=== PATIENT | male | born 1935 | race Caucasian/White ===

== ENCOUNTER 2016-06-25 01:59 | Emergency (ER) | payer OTHER ==
[2016-06-25 02:34] VITALS: BP 125/80; PULSE 60; TEMP 98.7; BMI 28.9
--- NOTE | 2016-06-25 06:35 | PDOC ---
History of Present Illness - General Chief Complaint: Cold Symptoms Stated Complaint: THROAT PROBLEM Time Seen by Provider: 06/25/16 05:11 History Source: Patient Exam Limitations: No Limitations - History of Present Illness Initial Comments: 06/25/16 06:26 Patient is a 80-year-old male with history of hypothyroid, varicosities, Parkinson's, impaired balance, complaining of a lot of phlegm 2 months and feeling like he can't swallow his phlegm. He denies abdominal pain, reflux. He was seen by ENT 1 week ago and there were no abnormal findings. He is scheduled to go to GI on June 29. Otherwise no other complaints of cough, fever, chills, chest pain, nausea, vomiting, constipation, diarrhea. PMD: Dr. Rodriguez PMHX: as above PSOCHx: neg etoh, drug, cig FamHx: Noncontributory ALL: NKDA GENERAL/CONSTITUTIONAL: [No fever or chills. No weakness. No weight change.] HEAD, EYES, EARS, NOSE AND THROAT: [No change in vision. No ear pain or discharge. No sore throat.] CARDIOVASCULAR: [No chest pain or shortness of breath.] RESPIRATORY: [No cough, wheezing, or hemoptysis.] GASTROINTESTINAL: [No nausea, vomiting, diarrhea or constipation. No rectal bleeding.] GENITOURINARY: [No dysuria, frequency, or change in urination.] MUSCULOSKELETAL: [No joint or muscle swelling or pain. No neck or back pain.] SKIN AND BREASTS: [No rash or easy bruising.] NEUROLOGIC: [No headache, vertigo, loss of consciousness, or loss of sensation, impaired balance.] PSYCHIATRIC: [No depression or anxiety.] ENDOCRINE: [No increased thirst. No abnormal weight change.] HEMATOLOGIC/LYMPHATIC: [No anemia, easy bleeding, or history of blood clots.] ALLERGIC/IMMUNOLOGIC: [No hives or skin allergy. No latex allergy.] GENERAL: [The patient is awake, alert, and fully oriented, in no acute distress. ] HEAD: [Normal with no signs of trauma.] EYES: [Pupils equal, round and reactive to light, extraocular movements intact, sclera anicteric, conjunctiva clear.] ENT: [Ears normal, nares patent, oropharynx clear without exudates. Moist mucous membranes.] NECK: [Normal range of motion, supple without lymphadenopathy, JVD, or masses.] LUNGS: [Breath sounds equal, clear to auscultation bilaterally. No wheezes, and no crackles.] HEART: [Regular rate and rhythm, normal S1 and S2 without murmur, rub.] ABDOMEN: [Soft, nontender, normoactive bowel sounds. No guarding, no rebound. No masses.] EXTREMITIES: [Normal range of motion, no edema. No clubbing or cyanosis. No cords, erythema, or tenderness.] NEUROLOGICAL: [Cranial nerves II through XII grossly intact. Normal speech, normal gait.] PSYCH: [Normal mood, normal affect.] SKIN: [Warm, Dry, normal turgor, no rashes or lesions noted.] Past History - Past Medical History Allergies/Adverse Reactions: Allergies Allergy/AdvReac Type Severity Reaction Status Date / Time No Known Allergies Allergy Verified 06/25/16 02:06 Home Medications: Ambulatory Orders Esomeprazole Mag Trihydrate [Nexium] 40 mg PO DAILY 11/10/12 Levothyroxine [Synthroid -] 50 mcg PO DAILY 11/10/12 Atorvastatin Ca [Lipitor] 10 mg PO HS 09/29/15 Bisacodyl [Dulcolax] 5 mg PO PRN PRN 09/29/15 Multivitamins [Multivit ([facility] Formul[facility])] 1 tab PO DAILY 09/29/15 Simvastatin [Zocor -] 20 mg PO HS 09/29/15 Aspirin/Dipyridamole [Aggrenox -] 1 combo PO DAILY #0 09/30/15 Carbidopa/Levodopa *Cr* 25/100 [Sinemet *Cr* 25/100 -] 1 combo PO BID 06/25/16 Clopidogrel Bisulfate [Plavix -] 75 mg PO DAILY 06/25/16 Diclofenac Sodium [Voltaren] 0 gm TP Q12H PRN 06/25/16 Anemia: No Asthma: No Cancer: No Cardiac Disorders: No CVA: No COPD: No CHF: No Dementia: No Diabetes: No GI Disorders: Yes (GERD, GASTRITIS) Disorders: Yes (BPH?) HTN: No Hypercholesterolemia: Yes Liver Disease: Yes (FATTY LIVER) Seizures: No Thyroid Disease: Yes (HYPO) - Surgical History Abdominal Surgery: No Appendectomy: No Cardiac Surgery: No Cholecystectomy: No Lung Surgery: No Neurologic Surgery: No Orthopedic Surgery: No - Psycho/Social/Smoking Cessation Hx Anxiety: No Suicidal Ideation: No Smoking Status: No Smoking History: Never smoked Number of Cigarettes Smoked Daily: 0 Hx Alcohol Use: Yes (OCC) Drug/Substance Use Hx: No Substance Use Type: None Hx Substance Use Treatment: No Respiratory Specific PMHX - Complaint Specific PMHX Angina: No *Physical Exam - Vital Signs Last Vital Signs Temp Pulse Resp BP Pulse Ox 98.7 F 60 18 125/80 97 06/25/16 02:04 06/25/16 02:04 06/25/16 02:04 06/25/16 02:04 06/25/16 02:04 Medical Decision Making - Medical Decision Making 06/25/16 06:41 Patient is a 80-year-old male with history of hypothyroid, varicosities, Parkinson's, impaired balance, complaining of a lot of phlegm 2 months and feeling like he can't swallow his phlegm. Likely that patient is having some reflux and since he has an appointment with GI in 2 days will discharge him with instructions to follow-up. I discussed the physical exam findings, ancillary test results and final diagnoses with the patient. I answered all of the patient's questions. The patient was satisfied with the care received and felt comfortable with the discharge plan and treatment plan. The Patient agrees to follow up with the primary care physician within 24-72 hours. *DC/Admit/Observation/Transfer Diagnosis at time of Disposition: Reflux esophagitis - Discharge Dispostion Disposition: HOME Condition at time of disposition: Stable - Referrals Referrals: Henny Graham MD [Primary Care Provider] - - Patient Instructions Printed Discharge Instructions: DI for Gastroesophageal Reflux Disease (GERD) Additional Instructions: Your Discharge Instructions: You must call primary care physician within 24 hours to arrange follow-up. Return to the Emergency Department with any new, persistent or worsening symptoms, for fever, chills, SOB, dizziness or any other concerning changes that may occur.
== END 2016-06-25 06:58 | disposition home or self-care (01) ==
LOC: JER 01:59
DX: K21.0 Gastro-esophageal reflux disease with esophagitis (principal); E03.9 Hypothyroidism, unspecified; G20 Parkinson's disease; R26.81 Unsteadiness on feet; I86.8 Varicose veins of other specified sites
CPT/HCPCS: 71020-TC; 99282-25

== ENCOUNTER 2016-10-03 00:02 | Emergency (ER) | payer OTHER ==
--- NOTE | 2016-10-03 00:42 | PDOC ---
History of Present Illness - History of Present Illness Initial Comments: 10/03/16 00:53 Patient is a 81 year old male with significant medical hx of Type II DM, Parkinson's, GERD, HLD, and hypothyroidism who is presenting to the ED with four months of chest congestion and productive cough. The patient states that he 's been symptomatic for the past few months after receiving flu and pneumonia vaccines. The patient was seen at [address] [place] [address], where he was diagnosed with cough and rhinosinusitis and discharged on mucinex and singulair. The patient came to the ED tonight because his symptoms are persisting even with medication. Denies fever, chills, chest pain, lightheadedness, nausea, vomiting , diarrhea, or urinary complaints. <Zakiya Casey - Last Filed: 10/03/16 00:53> <Evelyn Harris - Last Filed: 10/03/16 02:12> - General Chief Complaint: Shortness of Breath Stated Complaint: DIFFICULTY BREATHING Time Seen by Provider: 10/03/16 00:36 Past History <Zakiya Casey - Last Filed: 10/03/16 00:53> - Past Medical History Anemia: No Asthma: No Cancer: No Cardiac Disorders: No CVA: No COPD: No CHF: No Dementia: No Diabetes: No GI Disorders: Yes (GERD, GASTRITIS) Disorders: Yes (BPH?) HTN: No Hypercholesterolemia: Yes Liver Disease: Yes (FATTY LIVER) Seizures: No Thyroid Disease: Yes (HYPO) - Surgical History Abdominal Surgery: No Appendectomy: No Cardiac Surgery: No Cholecystectomy: No Lung Surgery: No Neurologic Surgery: No Orthopedic Surgery: No - Psycho/Social/Smoking Cessation Hx Anxiety: No Suicidal Ideation: No Smoking Status: No Smoking History: Never smoked Number of Cigarettes Smoked Daily: 0 Hx Alcohol Use: Yes (OCC) Drug/Substance Use Hx: No Substance Use Type: None Hx Substance Use Treatment: No <Evelyn Harris - Last Filed: 10/03/16 02:12> - Past Medical History Allergies/Adverse Reactions: Allergies Allergy/AdvReac Type Severity Reaction Status Date / Time No Known Allergies Allergy Verified 10/03/16 00:43 Home Medications: Ambulatory Orders Esomeprazole Mag Trihydrate [Nexium] 40 mg PO DAILY 11/10/12 Levothyroxine [Synthroid -] 50 mcg PO DAILY 11/10/12 Atorvastatin Ca [Lipitor] 10 mg PO HS 09/29/15 Bisacodyl [Dulcolax] 5 mg PO PRN PRN 09/29/15 Multivitamins [Multivit ([facility] Formul[facility])] 1 tab PO DAILY 09/29/15 Simvastatin [Zocor -] 20 mg PO HS 09/29/15 Aspirin/Dipyridamole [Aggrenox -] 1 combo PO DAILY #0 09/30/15 Carbidopa/Levodopa *Cr* 25/100 [Sinemet *Cr* 25/100 -] 1 combo PO BID 06/25/16 Clopidogrel Bisulfate [Plavix -] 75 mg PO DAILY 06/25/16 Diclofenac Sodium [Voltaren] 0 gm TP Q12H PRN 06/25/16 Albuterol Sulfate Inhaler - [Ventolin Hfa Inhaler -] 1 - 2 inh PO Q4H PRN #1 inhaler 10/03/16 Methylprednisolone [Medrol Dose Garrick] 4 mg PO ASDIR #21 tablet 10/03/16 Respiratory Specific PMHX - Complaint Specific PMHX Angina: No <Evelyn Harris - Last Filed: 10/03/16 02:12> Review of Systems - Review of Systems Comments:: 10/03/16 01:00 CONSTITUTIONAL: Absent: fever, chills, diaphoresis, generalized weakness, malaise, loss of appetite HEENT: Absent: rhinorrhea, nasal congestion, throat pain, throat swelling, difficulty swallowing, mouth swelling, ear pain, eye pain, visual changes CARDIOVASCULAR: Absent: chest pain, syncope, palpitations, irregular heart rate, lightheadedness , peripheral edema RESPIRATORY: Present: productive cough, chest congestion Absent: shortness of breath, dyspnea with exertion, orthopnea, wheezing, stridor , hemoptysis GASTROINTESTINAL: Absent: abdominal pain, abdominal distension, nausea, vomiting, diarrhea, constipation, melena, hematochezia GENITOURINARY: Absent: dysuria, frequency, urgency, hesitancy, hematuria, flank pain, genital pain MUSCULOSKELETAL: Absent: myalgia, arthralgia, joint swelling SKIN: Absent: rash, itching, pallor HEMATOLOGIC/IMMUNOLOGIC: Absent: easy bleeding, easy bruising, lymphadenopathy, frequent infections ENDOCRINE: Absent: unexplained weight gain, unexplained weight loss, heat intolerance, cold intolerance NEUROLOGIC: Absent: headache, focal weakness or paresthesia, dizziness, unsteady gait, seizure, mental status changes, bladder or bowel incontinence. PSYCHIATRIC: Absent: anxiety, depression, suicidal or homicidal ideation, hallucinations <Zakiya Casey - Last Filed: 10/03/16 00:53> *Physical Exam - Vital Signs Last Vital Signs Temp Pulse Resp BP Pulse Ox 97.8 F 89 20 134/70 97 10/03/16 00:37 10/03/16 00:37 10/03/16 00:37 10/03/16 00:37 10/03/16 00:37 - Physical Exam Comments: 10/03/16 01:01 GENERAL: Well developed, well nourished. Awake and alert. No acute distress. HEENT: Normocephalic, atraumatic. PERRLA, EOMI. No conjunctival pallor. Sclera are non- icteric. Moist mucous membranes. Oropharynx is clear. NECK: Supple. Full ROM. No JVD. Carotid pulses 2+ and symmetric, without bruits. No thyromegaly. No lymphadenopathy. CARDIOVASCULAR: Regular rate and rhythm. No murmurs, rubs, or gallops. Distal pulses are 2+ and symmetric. PULMONARY: Scattered wheezing. Cough. No evidence of respiratory distress. No rales or rhonchi. ABDOMINAL: Soft. Non-tender. Non-distended. No rebound or guarding. No organomegaly. Normoactive bowel sounds. MUSCULOSKELETAL: Normal range of motion at all joints. No bony deformities or tenderness. No CVA tenderness. EXTREMITIES: No cyanosis. No clubbing. No edema. No calf tenderness. SKIN: Warm and dry. Normal capillary refill. No rashes. No jaundice. NEUROLOGICAL: Alert, awake, appropriate. Cranial nerves 2-12 intact. Normal speech. Toes are down-going bilaterally. Gait is normal without ataxia. PSYCHIATRIC: Cooperative. Good eye contact. Appropriate mood and affect. <Zakiya Casey - Last Filed: 10/03/16 00:53> Medical Decision Making - Medical Decision Making 10/03/16 02:08 81-year-old male came in by ambulance accompanied by his for complaint of congestion, nocturnal coughing, difficulty breathing. He has a history of Parkinson's and was seen by his primary doctor today. Today, his primary doctor gave him 2 new prescriptions which were mucinex and Singulair which they picked up at the [facility]. On exam, he had some faint scattered wheezing, and a significant amount of phlegm . He is not hypoxic . He was given an albuterol treatment and his symptoms resolved. CXR did not show any significant effusions, no pneumothorax, no pneumonia I spoke to the patient and his and told them they should follow-up with his neurologist because his symptoms may be related to the progression of his Parkinson's and his inability to clear his own secretions well and take deep breaths <Evelyn Harris - Last Filed: 10/03/16 02:12> *DC/Admit/Observation/Transfer - Attestations Scribe Attestion: 10/03/16 01:06 Documentation prepared by Zakiya Casey, acting as anesthesiology medical doctor for Evelyn Harris MD. <Zakiya Casey - Last Filed: 10/03/16 00:53> <Evelyn Harris - Last Filed: 10/03/16 02:12> Diagnosis at time of Disposition: Phlegm in throat, Parkinson disease, Wheezing - Discharge Dispostion Disposition: HOME Condition at time of disposition: Stable - Prescriptions Prescriptions: Methylprednisolone [Medrol Dose Garrick] 4 mg PO ASDIR #21 tablet Albuterol Sulfate Inhaler - [Ventolin Hfa Inhaler -] 1 - 2 inh PO Q4H PRN #1 inhaler PRN Reason: Wheezing - Referrals Referrals: Henny Graham MD [Primary Care Provider] - Matty Paiz MD [Staff Physician] - - Patient Instructions Printed Discharge Instructions: DI for Parkinson's Disease Additional Instructions: please cloth picker your medications at the [facility] follow up with your neurologist
[2016-10-03 00:43] VITALS: BP 134/70; PULSE 89; TEMP 97.8; BMI 28.1
[2016-10-03] MEDS ORDERED: VALSARTAN 160 MG TABLET (UD) PO ONE (00:45)
[2016-10-03] MEDS ORDERED: ALBUTEROL SO4 2.5/IPRATROPIUM 0.5 INH SOL 3 ML VIAL.NEB. NEB ONE ×2 (00:45→00:48)
[2016-10-03] MEDS ORDERED: predniSONE 20 MG TABLET (UD) ONE (00:45)
[2016-10-03] MEDS ORDERED: HYDROCHLOROTHIAZIDE 25 MG TABLET (FP) PO ONE (00:46)
[2016-10-03] MEDS ORDERED: predniSONE 20 MG TABLET (UD) PO ONE (01:04)
== END 2016-10-03 02:48 | disposition home or self-care (01) ==
LOC: JER 00:02
PROC: 3E0F7GC Introduction of Other Therapeutic Substance into Respiratory Tract, Via Natural or Artificial Opening (ICD-10-PCS; principal; 2016-10-03)
DX: G20 Parkinson's disease (principal); R09.3 Abnormal sputum; R06.2 Wheezing; K21.9 Gastro-esophageal reflux disease without esophagitis; E78.00 Pure hypercholesterolemia, unspecified; E03.9 Hypothyroidism, unspecified; K76.0 Fatty (change of) liver, not elsewhere classified
CPT/HCPCS: 71010-TC; 94640; 99282-25